=== PATIENT | female | born 1970 | race Caucasian/White ===

== ENCOUNTER 2018-08-21 09:59 | Emergency (ER) | payer BC ==
--- NOTE | 2018-08-21 10:23 | ED ---
HPI Chest Pain - HPI Summary HPI Summary: This pt is a 48 y/o F presenting to [facility] with a CC of mid-sternal CP, described as discomfort, that does not radiate. She states that she was on her way to work this morning when she started choking on her coffee which caused her to cough. She states that after the choking episode she had aching in her chest and pain on deep breaths. She reports that she had a cold feeling that extended down her legs but not her arms. She states that the pain in her chest right now is a 4/10 in severity and started around 3-4 hours ago. While at work she states that her blood pressure increased and she began experiencing some SOB but states that she is breathing fine while in the ED. She denies any N/V/D , fevers, diaphoresis, rashes, abdominal pain, and palpitations. She stated no alleviating or aggravating factors. She has a PMHx of anxiety and a pulmonary embolism in 2011. She states that the pain she is feeling is very different than the pain felt with the PE. - History of Current Complaint Chief Complaint: EDChestPainROMI Time Seen by Provider: 08/21/18 10:07 Hx Obtained From: Patient Onset/Duration: Started Hours Ago - 3-4, Still Present Timing: Constant Initial Severity: Moderate Current Severity: Moderate Pain Intensity: 4 Pain Scale Used: 0-10 Numeric Chest Pain Location: Mid Sternal Chest Pain Radiates: No Character: Other: - discomfort Aggravating Factor(s): Deep Breaths Alleviating Factor(s): Nothing Associated Signs and Symptoms: Positive: Chest Pain - mid-sternal, Anxiety, Chills - Lower extremities, Cough, Other: - Negative: diarrhea. Negative: Headaches, Shortness of Breath, Fever, Diaphoresis, Nausea, Palpitations, Abdominal Pain, Vomiting - Allergy/Home Medications Allergies/Adverse Reactions: Allergies Allergy/AdvReac Type Severity Reaction Status Date / Time No Known Allergies Allergy Verified 08/21/18 10:17 Home Medications: Home Medications Escitalopram * [Lexapro 10 mg (NF)] 10 mg PO DAILY 08/21/18 [History Confirmed 08/21/18] PMH/Surg Hx/FS Hx/Imm Hx Previously Healthy: No Cardiovascular History: Denies: Hx Pacemaker/ICD Respiratory History: Reports: Hx Asthma Sensory History: Reports: Hx Contacts or Glasses - glasses Opthamlomology History: Reports: Hx Contacts or Glasses - glasses Neurological History: Reports: Other Neuro Impairments/Disorders - CHRONIC MIGRAINES AND DIZZY SPELLS Psychiatric History: Reports: Hx Anxiety Denies: Hx Panic Disorder - Cancer History Hx Chemotherapy: No Hx Radiation Therapy: No - Surgical History Surgery Procedure, Year, and Place: RHINOPLASTY Xs 2; ; TONSILS AND ADNOIDS. Hyster july 2016 Infectious Disease History: No Infectious Disease History: Denies: Traveled Outside the [place] in Last 30 Days - Family History Known Family History: Positive: Other - anxiety - Social History Occupation: Employed Full-time Alcohol Use: Rare Hx Substance Use: No Substance Use Type: Reports: None Hx Tobacco Use: No Smoking Status (MU): Never Smoked Tobacco Review of Systems Positive: Chills - lower extremities. Negative: Fever, Skin Diaphoresis Positive: Chest Pain - mid-sternal. Negative: Palpitations Positive: Cough. Negative: Shortness Of Breath Negative: Abdominal Pain, Vomiting, Diarrhea, Nausea Negative: Rash Negative: Headache Positive: Anxious All Other Systems Reviewed And Are Negative: Yes Physical Exam - Summary Physical Exam Summary: Appearance: Well-appearing, Well-nourished, lying in bed comfortably Skin: Warm, dry, no obvious rash Eyes: sclera anicteric, no conjunctival pallor ENT: mucous membranes moist, pharynx appears normal Neck: Supple, nontender Respiratory: Clear to auscultation, no signs of respiratory distress Cardiovascular: Normal S1, S2. No murmurs. Normal distal pulses in tibial and radial bilaterally. Abdomen: Soft, nontender, normal active bowel sounds present Musculoskeletal: Normal, Strength/ROM Intact Neurological: A&Ox3, awake and alert, mentation is normal, speech is fluent and appropriate Psychiatric: affect is normal, does not appear anxious or depressed Triage Information Reviewed: Yes Vital Signs On Initial Exam: Initial Vitals Temp Pulse Resp BP Pulse Ox 97.8 F 74 16 168/114 100 08/21/18 10:01 08/21/18 10:01 08/21/18 10:01 08/21/18 10:01 08/21/18 10:01 Vital Signs Reviewed: Yes Diagnostics - Vital Signs Vital Signs Temp Pulse Resp BP Pulse Ox 08/21/18 10:01 97.8 F 74 16 168/114 100 - Laboratory Result Diagrams: 08/21/18 10:21 08/21/18 10:21 Lab Statement: Any lab studies that have been ordered have been reviewed, and results considered in the medical decision making process. - Radiology CXR Radiology Interpretation Completed By: Radiologist Summary of Radiographic Findings: No active cardiopulmonary disease is noted. - EKG 1011 Cardiac Rate: NL - 69 BPM EKG Rhythm: Sinus Rhythm ST Segment: Normal Ectopy: None Summary of EKG Findings: NSR at 69 BPM, P waves, QRS complex, and T waves are within normal limits, T waves and intervals are normal, no ischemic changes. This is a normal EKG. Interpreted by Dr. Vaughn at 1012 08/21/18. Re-Evaluation - Re-Evaluation First Eval Re-Evaluation Time: 12:18 Change: Improved Comment: Pt made aware of CXR and lab findings. she was informed of the discharge plan and is agreeable. Chest Pain Course/Dx - Course Course Of Treatment: This pt is a 48 y/o F presenting to [facility] with a CC of CP. She states that she was on her way to work this morning when she started choking on her coffee which caused her to cough. She states that after the choking episode she had aching in her chest and pain on deep breaths. She reports that she had a cold feeling that extended down her legs but not her arms. Her physical exam showed no significant findings. She received an EKG which NSR at 69 BPM, P waves, QRS complex, and T waves are within normal limits , T waves and intervals are normal, no ischemic changes. This is a normal EKG. She has no abnormal lab findings. She had a CXR which showed No active cardiopulmonary disease. She will be discharged home with a Dx of Chest Wall Pain and instructed to follow up with her PCP in 2-3 days. She will also be informed to return to the ED with any new or worsening symptoms. - Diagnoses Provider Diagnoses: Chest wall pain Discharge - Sign-Out/Discharge Documenting (check all that apply): Patient Departure - discharge Patient Received Moderate/Deep Sedation with Procedure: No - Discharge Plan Condition: Stable Disposition: HOME Patient Education Materials: Chest Wall Pain (ED) Referrals: Kim Pelaez MD [Primary Care Provider] - If Needed - Billing Disposition and Condition Condition: STABLE Disposition: Home - Attestation Statements Document Initiated by Kristina: Yes Documenting Scribe: Joey Cates Provider For Whom Kristina is Documenting (Include Credential): Maxwell Vaughn MD Scribe Attestation: I, Joey Cates, scribed for Maxwell Vaughn MD on 08/23/18 at 0427. Scribe Documentation Reviewed: Yes Provider Attestation: The documentation as recorded by the terrieeJoey accurately reflects the service I personally performed and the decisions made by me, Maxwell Vaughn MD Status of Scribe Document: Viewed
[2018-08-21 10:43] LABS: ABS Basophils 0.1 10^3/ul (0-0.2); ABS Eosinophils 0.1 10^3/ul (0-0.6); ABS Monocytes 0.5 10^3/ul (0-0.8); ABS Neutrophils 3.5 10^3/ul (1.5-7.7); Eosinophil % 1.9 %; Hematocrit 42 % (35-47); Hemoglobin 13.9 g/dL (12.0-16.0); Mean Corpuscular HGB Conc 33 g/dL (31-36); Mean Corpuscular Hemoglobin 29 pg (27-31); Mean Corpuscular Volume 87 fL (80-97); Mean Platelet Volume 7.9 fL (7.4-10.4); Platelet Count 269 10^3/uL (150-450); Red Blood Count 4.83 10^6 /uL (3.70-4.87); Red Cell Distribution Width 14 % (10-15); White Blood Count 6.3 10^3/uL (3.5-10.8)
[2018-08-21 10:52] LABS: INR 0.97 (0.82-1.09)
[2018-08-21 10:55] LABS: Albumin 4.4 g/dL (3.2-5.2); Albumin/Globulin Ratio 1.4 (1-3); BUN/Creatinine Ratio 19.5 (8-20); EGFR African American 89.7 (>60); EGFR Non-African American 74.1 (>60); Globulin 3.1 g/dL (2-4); Potassium 3.8 mmol/L (3.5-5.0); Total Bilirubin 0.7 mg/dL (0.2-1.0); Total Protein 7.5 g/dL (6.4-8.9)
[2018-08-21 12:30] VITALS: BP 121/79
== END 2018-08-21 12:29 | disposition home or self-care (01) ==
LOC: ED 09:59
DX: R07.89 Other chest pain (principal); R68.83 Chills (without fever); R05 Cough; F41.9 Anxiety disorder, unspecified
CPT/HCPCS: 36415; 71046; 80053; 84484; 85025; 85379; 85610; 93005; 99283